=== PATIENT | female | born 1940 | race Caucasian/White ===

== ENCOUNTER 2019-09-15 15:31 | Emergency (ER) | payer MEDICARE, OTHER, SELFPAY ==
--- NOTE | ~2019-09-15 | CT_ITS ---
EXAMINATION: CT brain wo con INDICATION: Unsteady gait, achalasia COMPARISON: None TECHNIQUE: Standard unenhanced head CT. The dose-length product (DLP) was 605.33 mGy-cm. The mA was a djusted according to patient size. Iterative reconstruction technique was employed. FINDINGS: There is no acute intraparenchymal hemorrhage. No evidence of mass lesion. No evidence of a cute infarction. There is moderate periventricular and subcortical hypodensity probably related to sm all vessel ischemic disease. There is moderate prominence of the sulci and ventricles related to cere bral atrophy. Intracranial calcified cerebral atherosclerosis is noted. There are no extra-axial meliza ections. There is no mass effect or midline shift. Changes in the globes are likely from ocular lens surgery. There is mild mucosal thickening of the paranasal sinuses. IMPRESSION: 1. No acute intracranial abnormality. 2. Age related findings. Reviewed, dictated and finalized at location A. UATE FELLOW
--- NOTE | ~2019-09-15 | XR_ITS ---
EXAMINATION: XR chest 1V portable INDICATION: Elevated troponin, generalized weakness TECHNIQUE: Portable AP chest at 1906 hours COMPARISON: 01/18/2019 FINDINGS: The lungs are free of acute opacities. There is no pleural effusion or pneumothorax. The ca rdiac silhouette is normal for technique. There are changes of endovascular cardiac valve repair. IMPRESSION: 1. No acute cardiopulmonary abnormality. Reviewed, dictated and finalized at location A. TION SAW OPERATOR
[2019-09-15 16:19] VITALS: BP 172/77; PULSE 86; RESP 18; TEMP 36.1; O2SAT 98
--- NOTE | 2019-09-15 17:09 | ED.NEUROSD ---
HPI - Neuro Symptoms/Deficit General Chief Complaint: Suspected CVA Stated Complaint: sent over by dr hdez History of Present Illness HPI Narrative: Presented to Dr. Hdez's office today with c/o of one week of having trouble with walking, feeling of buzzing in her head. When she walks she feels like she might fall forward; this is relieved with the use of a cane. In the past few days she had felt weak and has had no appetite. Vomited 3 days ago. Has had pins and needle sensations in her hands, right more than left. She denies shortness of breath, chest/arm/neck pain. She has just not felt right for the past 2 weeks: less energy, intermittent headache, legs feeling weak. Daughter is concerned she's not as sharp as usual, speech is not as fluent. Over the past year she has had problems with occasionally stumbling speech where she has to correct herself for getting words out of order. s/p aortic valve replacement 11/2018. Takes propafenone. Related Data Home Medications Medication Instructions Recorded Confirmed Adult One Daily Multivitamin 1 tab-cap BYMOUTH DAILY 09/15/19 09/15/19 Aspir-81 81 mg DAILY 09/15/19 09/15/19 metformin 1,000 mg PO BID 09/15/19 09/15/19 paroxetine HCl 40 mg PO DAILY 09/15/19 09/15/19 propafenone 150 mg PO BID 09/15/19 09/15/19 simvastatin 40 mg PO DAILY 09/15/19 09/15/19 Allergies Allergy/AdvReac Type Severity Reaction Status Date / Time CODIENE Allergy Mild Nausea Uncoded 04/01/06 15:33 UNKOWN FROM DENTIST Allergy Mild HIVES Uncoded 04/01/06 15:33 Review of Systems Constitutional: Constitutional: Denies chills and Denies fever(s) Eyes: Eyes: Denies change in vision ENT: Denies nasal congestion and Denies sore throat Cardiovascular: Cardiovascular: Reports no additional cardiovascular complaints and Denies rapid heart rate Respiratory: Respiratory: Denies chest congestion, Denies cough, Denies dyspnea and Denies wheezing Gastrointestinal: Gastrointestinal: Denies abdominal pain and Reports diarrhea Genitourinary: Genitourinary: Denies nocturia and Denies dysuria Musculoskeletal: Musculoskeletal: Reports no additional musculoskeletal complaints Comments: chronic right knee aching. Integumentary/Breasts: Skin/Breast: Denies rash Neurologic: Reports system reviewed and no additional complaints, except as documented, Denies vertigo, Denies syncope and Denies focal weakness Endocrine: Endocrine: Denies polyuria Hematologic/Lymphatic: Hematologic/Lymphatic: Denies easy bruising PMFSH Past Medical History Medical History Anxiety disorder Diabetes mellitus Hyperlipidemia Hypertension LVH (left ventricular hypertrophy) Polyarthritis Sleep apnea Surgical History Surgical History H/O aortic valve replacement Social History Social History Gender identity (if verbalized by the patient): Female Exam Const: General: cooperative, no acute distress and alert Nutritional Appearance: obese Orientation/consciousness: patient oriented x3 Limitations: no limitations HENMT: Head: normal to inspection, no hematomas and no scalp tenderness Face and sinus: sinuses nontender Mouth: Yes moist mucous membranes Eyes: General: appearance normal, both eyes and all related structures EOM: EOMs intact bilaterally Neck: Neck: normal visual inspection and other (2+ carotids, no bruit, transmitted louder S2 . ) Lymphatic: no lymphadenopathy noted Chest: Chest palpation & inspection: normal inspection of the chest Resp: Effort & Inspection: normal respiratory effort and no cough Auscultation: clear to auscultation bilaterally, no crackles and no rales Cardio: Jugular venous distension: no JVD Palpation: normal PMI Rate: regular rate Rhythm: regular rhythm Heart sounds: S1 normal heart sound present and S2 normal heart sound prese
[2019-09-15 17:39] LABS: Basophils Absolute Auto 0.11 K/mm3 (0.00-0.10); Basophils Percent Auto 1.2 % (0.0-1.0); Eosinophils Absolute Auto 0.14 K/mm3 (0.02-0.50); Eosinophils Percent Auto 1.5 % (1.0-6.0); Hematocrit 44.7 % (35.0-42.0); Hemoglobin 15.2 g/dL (11.7-13.8); Immature Granulocyte Absolute 0.05 K/mm3 (0.00-0.00); Immature Granulocyte Percent A 0.5 % (0.0-0.0); Lymphocytes Percent Auto 26.6 % (18.0-42.0); Mean Corpuscular Volume 85.3 fL (78.0-102.0); Mean Platelet Volume 9.5 fl (9.2-11.8); Monocytes Absolute Auto 1.02 K/mm3 (0.10-0.90); Monocytes Percent Auto 10.9 % (2.0-11.0); Neutrophils Absolute Auto 5.6 K/mm3 (1.7-7.2); Neutrophils Percent Auto 59.3 % (50.0-70.0); Platelet Count Result 236 K/mm3 (150-420); Red Blood Count 5.24 M/mm3 (4.20-5.40); Red Cell Distribution Width 12.1 % (11.6-14.4); White Blood Count 9.4 K/mm3 (4.8-10.8)
[2019-09-15 18:05] LABS: Alanine Aminotransferase 30 U/L (14-59); Alkaline Phosphatase 86 U/L (46-116); Anion Gap 16.3 mmol/L (7-16); Aspartate Amino Transferase 26 U/L (15-37); Bilirubin,Total 0.6 mg/dL (0.00-1.00); Blood Urea Nitrogen 25 mg/dL (7-18); Calcium 9.8 mg/dL (8.5-10.1); Carbon Dioxide 27 mmol/L (21-32); Chloride 98 mmol/L (98-108); Estimated CRCL calculation 28 ml/min; Estimated Glomerular Filt Rate 33; Glucose 162 mg/dL (70-99); Osmolality Calculated 292 mOsm/kg (285-295); Potassium 4.3 mmol/L (3.5-5.1); Sodium 137 mmol/L (136-145); Total Protein 7.7 g/dL (6.4-8.2)
[2019-09-15 18:06] LABS: Troponin I 0.34 ng/mL (0.00-0.056)
--- NOTE | 2019-09-15 18:10 | ECG_ITS ---
Measurements Intervals [place] Rate: 79 P: 28 MN: 232 QRS: -19 QRSD: 98 T: 47 QT: 410 QTc: 473 Interpretive Statements SINUS RHYTHM WITH SINUS ARRHYTHMIA WITH FIRST DEGREE AV BLOCK BORDERLINE R WAVE PROGRESSION, ANTERIOR LEADS BORDERLINE ST-T WAVE ABNORMALITY- LATERAL LEADS ABNORMAL ECG Electronically Signed On 09-16-2019 8:31:54 PROCESSING ENGINEER by Piter Garcia D.O.
[2019-09-15 18:20] LABS: Add Urine Microscopic? YES; Appearance Urine Clear (Clear); Bilirubin Urine 1+ (Negative); Blood Urine Negative (Negative); Color Urine Yellow (Yellow); Glucose Urine UA Negative (Negative); Ketones Urine Trace (Negative); Leukocyte Esterase Ur Trace (Negative); Nitrate Urine Negative (Negative); Protein Urine Negative (Negative); Specific Grav Ur >= 1.030 (1.010-1.020); Urobilinogen Urine 0.2 mg/dL (0.2-1.0)
[2019-09-15 18:26] LABS: RBC Urine 0-2 /hpf (0-2); WBC Urine 0-3 /hpf (0-3)
[2019-09-15 18:27] LABS: Bacteria Urine Trace /hpf; Mucus Urine Few /lpf; Squamous Epithelial Cell Urine Many /hpf (Few)
--- NOTE | 2019-09-15 18:49 | PC.NURSE ---
PT RESTING ON STREACHER. MONITOR REMAINS NSR. PT. DENIES C/O CHEST PAIN OR SOB. FAMILY AT BEDSIDE.
--- NOTE | 2019-09-15 19:08 | PC.NURSE ---
Call placed to [facility] transfer line per Dr Lane request. [facility]Hospitalist will call back.
--- NOTE | 2019-09-15 19:28 | PC.NURSE ---
Dr Cyr, [facility]ist returning call at this time.
[2019-09-15 20:06] LABS: BNP 28.1 pg/mL (0-100)
[2019-09-15] MEDS: ASPIRIN 81 MG CHEWABLE TABLET 324 MG PO (20:40)
[2019-09-15 20:52] VITALS: BP 188/78; PULSE 71; RESP 18; TEMP 36.2; O2SAT 98
[2019-09-15] MEDS: ONDANSETRON INJ 4 MG/2 ML VIAL IV PUSH (21:06)
--- NOTE | 2019-09-15 21:09 | PC.NURSE ---
2100 PT. C/O NAUSEA DRY HEAVES NOTED. ORDERS RECIEVED FOR ZOFRAN. PT DENIES CHEST PAIN. NEURO INTACT
--- NOTE | 2019-09-15 22:08 | PC.NURSE ---
PT. REQUESTED TO GO TO [facility] THAT IS WHERE HER [facility] PLANNING AIDE IS. DR. ROCHE
== END 2019-09-15 21:08 | disposition short-term general hospital (02) ==
PROVIDERS: Emergency Provider Family Medicine; PCP Internal Medicine
DX: I21.4 Non-ST elevation (NSTEMI) myocardial infarction (principal); E11.9 Type 2 diabetes mellitus without complications; E78.5 Hyperlipidemia, unspecified; I10 Essential (primary) hypertension
CPT/HCPCS: 36415; 70450; 71045; 80053; 81001; 83880; 84484; 85025; 93005; 96374; 99285; A9270; J2405

== ENCOUNTER 2019-11-01 13:28 | Outpatient (CLI) | payer MEDICARE, OTHER, SELFPAY ==
--- NOTE | ~2019-11-01 | XR_ITS ---
XR hip RT min 2V DATE: 11/01/2019 14:01 INDICATION: Right thigh pain TECHNIQUE: AP and lateral views of right hip COMPARISON: None FINDINGS: No fracture, dislocation, avascular necrosis or bone destruction of the right hip is eviden t. Mild osteoarthritis at the right hip. IMPRESSION: Mild right hip osteoarthritis Reviewed, dictated and finalized at location B.
--- NOTE | ~2019-11-01 | XR_ITS ---
XR lumbar spine 2-3V DATE: 11/01/2019 14:01 INDICATION: Low back pain, right thigh pain TECHNIQUE: AP, lateral, coned lateral lumbosacral views COMPARISON: 04/24/2011 lumbar spine FINDINGS: Minimal levoscoliosis of the lumbar spine. Normal alignment of the lumbar spine. No fractur e or bone destruction or spondylolisthesis. The lumbar pedicles are intact. There is moderate to moderately severe degenerative disease throughout the lumbar and lumbosacral spi ne, with least involvement at L2-3. However, there are prominent bridging osteophytes particularly at T12-L1, L1-L2 and L2-L3 on the left. The sacroiliac joints appear normal. IMPRESSION: Extensive degenerative changes Reviewed, dictated and finalized at location B.
== END 2019-11-01 13:29 | disposition home or self-care (01) ==
LOC: CHSIMG 13:33
PROVIDERS: PCP Internal Medicine; Visit Provider Internal Medicine
DX: M79.651 Pain in right thigh (principal)
CPT/HCPCS: 72100; 73502

== ENCOUNTER 2019-11-01 14:06 | Outpatient (RCR) | payer MEDICARE, OTHER, SELFPAY ==
--- NOTE | 2019-11-01 15:18 | PTOPEVAL ---
Thank you for referring this patient to [facility]. Please review, sign, date and return this plan of care [facility]. I agree with and certify that the following plan of care is medically necessary. Referring Physician Date Admitting Provider: Attending Provider: Xu Hdez MD Referring Provider: *PT Outpatient Evaluation Start: 11/01/19 14:19 Freq: Status: Active Protocol: Document 11/01/19 14:19 JTF (Rec: 11/01/19 15:13 J [id number]) Therapy Assessment Status Assessment Status Assessment Status Evaluation Outpatient Past Medical History Past Medical History Source of Past Medical History Patient Cardiovascular History Hx Hypercholesterolemia Yes Hx Valve Replacement Yes Musculoskeletal History Hx Arthritis Yes Endocrine History Hx Diabetes Yes Reproductive History Hx Hysterectomy Yes Evaluation Information Problem Diagnosis L5 radiculopathy with gait disturbance Onset 11/01/19 Additional Evaluation Detail oswestry = Subjective Information patient reports she has been Query Text:As Reported By Patient/ having pain in the low back, r Family hip, and R anterior thigh for about 1 week. she reports she had no injury. she reports the pain is unchanged thus far . she reports the pain does fluctuate. she reports she did have a shot today. she reports no relief from her shot yet. she reports she has just had xrays of the low back prior to therapy. Prior Level of Function Comments Additional Prior Level of Function patient reports prior to about Comments 1 week ago. she was feeling alright. she reports she was having no pain, but had been coming to cardiac rehab. she reports no pace maker, but has had heart surgery. she reports she was not using any AD. Pain Assessment Timing of Pain Assessment Timing of Pain Assessment Assessment Pain Scale Pain Scale Used Numeric (1 - 10) Self Report Pain Assessment Right Lower Back Reported Pain Level 6 Pain Description Sharp,Shooting Pain Radiation Right Leg Radicular Pain Location buttock and anterior thigh Greatest Pain Intensity
== END 2019-11-28 17:00 | disposition home or self-care (01) ==
LOC: CHSPT 14:06
PROVIDERS: PCP Internal Medicine; Visit Provider Internal Medicine
DX: M54.17 Radiculopathy, lumbosacral region (principal)
CPT/HCPCS: 72100; 73502; 97014; 97110; 97140; 97161; G0283

== ENCOUNTER 2019-12-02 08:23 | Outpatient (CLI) | payer MEDICARE, OTHER, SELFPAY ==
--- NOTE | ~2019-12-02 | MR_ITS ---
EXAMINATION: MR lumbar spine wo con DATE: 12/02/2019 09:45 INDICATION: Low back pain. TECHNIQUE: Magnetic resonance imaging (MRI) of the lumbar spine was performed without intravenous con trast. Sequences included sagittal T2-weighted FSE, sagittal T2-weighted FS FSE, sagittal T1-weighted FSE, and axial T2-weighted FSE. COMPARISON: Lumbar spine radiographs 11/01/2019 FINDINGS: There is 3 degrees levocurvature of lumbar spine. There are Schmorl's nodes at L1-L2 and L3 -L4. There is moderately decreased disc height at L1-L2, L3-L4, and L4-L5 and severely decreased disc height at L5-S1. The distal spinal cord signal intensity is normal. The conus medullaris is at L1-L2 . The following disc levels are specifically discussed: L1-L2: The disc is bulging and has an annular fissure. There is mild bilateral facet joint osteoarthr itis. There is mild right and moderate left neural foraminal stenosis. There is mild central canal st enosis. L2-L3: The disc is mildly bulging. There is mild bilateral facet joint osteoarthritis. There is mild left neural foraminal stenosis. There is no central canal stenosis. L3-L4: The disc is bulging and has an annular fissure. There is moderate bilateral facet joint osteoa rthritis. There is mild right and moderate left neural foraminal stenosis. There is severe central ca nal stenosis. L4-L5: The disc is bulging and has an annular fissure. There is moderate right and severe left facet joint osteoarthritis. There is mild right and moderate left neural foraminal stenosis. There is mild central canal stenosis with asymmetry stenosis of left lateral recess. L5-S1: The disc is bulging and has an annular fissure. There is severe bilateral facet joint osteoart hritis. There is mild right and moderate left neural foraminal stenosis. There is mild central canal stenosis. IMPRESSION: 1. Severe lumbar spondylosis. Reviewed, dictated and finalized at location A.
== END 2019-12-02 08:24 | disposition home or self-care (01) ==
LOC: CHSIMG 08:25
PROVIDERS: PCP Internal Medicine; Visit Provider Internal Medicine
DX: M54.16 Radiculopathy, lumbar region (principal); M54.9 Dorsalgia, unspecified
CPT/HCPCS: 72148

== ENCOUNTER 2020-01-04 12:05 | Outpatient (CLI) | payer MEDICARE, OTHER, SELFPAY ==
--- NOTE | ~2020-01-04 | US_ITS ---
EXAMINATION: US carotid duplex BI DATE: 01/04/2020 14:16 INDICATION: Carotid stenosis. TECHNIQUE: Grayscale, color Doppler, and pulsed Doppler images of the cervical carotid arteries were obtained. The degree of vessel stenosis is placed in one of the following categories: normal, <50%, 5 0-69%, >=70% but less than near-occlusion, near-occlusion, or total occlusion. Note that percent sten osis relative to normal distal artery lumen diameter is indirectly measured from velocity measurement s as described by Ac, et al. Radiology 2003; [id number]. COMPARISON: None. FINDINGS: RIGHT: The right common carotid artery (CCA) peak systolic velocity (PSV) is 58 cm/s. The right internal car otid artery (ICA) PSV is 103 cm/s. The right ICA end-diastolic velocity (EDV) is 31 cm/s. The right I CA/CCA PSV ratio is 1.8. Grayscale and color Doppler images yield an estimate of <50% diameter reduct ion from plaque in the ICA. There is antegrade flow in the right vertebral artery. LEFT: The left CCA PSV is 57 cm/s. The left ICA PSV is 137 cm/s. The left ICA EDV is 43 cm/s. The left ICA/ CCA PSV ratio is 2.5. Grayscale and color Doppler images yield an estimate of <50% diameter reduction from plaque in the ICA. There is antegrade flow in the left vertebral artery. IMPRESSION: 1. <50% stenosis in the right internal carotid artery. 2. <50% stenosis in the left internal carotid artery. Reviewed, dictated and finalized at location A.
== END 2020-01-04 12:06 | disposition home or self-care (01) ==
LOC: CHSIMG 12:07
PROVIDERS: PCP Internal Medicine; Visit Provider Specialist
DX: I35.0 Nonrheumatic aortic (valve) stenosis (principal); Z95.2 Presence of prosthetic heart valve; I77.9 Disorder of arteries and arterioles, unspecified; I65.23 Occlusion and stenosis of bilateral carotid arteries
CPT/HCPCS: 93306; 93880